=== PATIENT | male | born 1950 | race Caucasian/White ===

== ENCOUNTER 2017-06-13 18:53 | Emergency (ER) | payer BC, MEDICARE ==
[2017-06-13] MEDS ORDERED: Ketorolac 60 MG/2 ML SDV IM ONE (19:21)
--- NOTE | 2017-06-13 19:28 | EDM.PDOC ---
ED HPI GENERAL MEDICAL PROBLEM - General Chief Complaint: General Stated Complaint: right facial swelling Time Seen by Provider: 06/13/17 19:11 Source of Information: Reports: Patient History Limitations: Reports: No Limitations - History of Present Illness INITIAL COMMENTS - FREE TEXT/NARRATIVE: Has history of parotiditis in the past and has prednisone and clindamycin on hand and started it last . He state that there was no swelling at that time and yesterday it did start to swell some. He felt that the swelling may have become worse this afternoon. He has not had a fever or chills and states that it gets bigger when he is talking or swallowing more. Notes that it is smaller since the trip to [place] since he didn't talk all the way here. Onset: Gradual Duration: Week(s): Location: Reports: Face Quality: Reports: Dull - Related Data Allergies Allergy/AdvReac Type Severity Reaction Status Date / Time No Known Allergies Allergy Verified 06/13/17 18:57 Home Meds: Home Meds Aspirin [Halfprin] 81 mg PO DAILY 06/13/17 [History] Calcium Carbonate [Calcium] 600 mg PO DAILY 06/13/17 [History] Clindamycin HCl [Clindamycin HCl] 300 mg PO QID PRN 06/13/17 [History] Fish Oil/[place]-3 Fatty Acids [Fish Oil] 2 each PO DAILY 06/13/17 [History] Lisinopril/Hydrochlorothiazide [Lisinopril-Hctz 10-12.5 mg Tab] 1 each PO DAILY 06/13/17 [History] Loratadine [Claritin] 10 mg PO DAILY 06/13/17 [History] Rutin/Hesp/Bioflav/C/Herb#196 [Bioflex] 2 each PO DAILY 06/13/17 [History] Simvastatin [Zocor] 20 mg PO BEDTIME 06/13/17 [History] amLODIPine [Norvasc] 5 mg PO DAILY 06/13/17 [History] predniSONE [predniSONE] 40 mg PO DAILY 06/13/17 [History] Past Medical History HEENT History: Reports: Allergic Rhinitis Cardiovascular History: Reports: High Cholesterol, Hypertension - Past Surgical History HEENT Surgical History: Reports: Oral Surgery GI Surgical History: Reports: Colonoscopy Social & Family History - Tobacco Use Smoking Status *Q: Current Every Day Smoker Years of Tobacco use: 40 Packs/Tins Daily: 1.5 - Alcohol Use Days Per Week of Alcohol Use: 1 Number of Drinks Per Day: 4 Total Drinks Per Week: 4 - Recreational Drug Use Recreational Drug Use: No ED ROS GENERAL - Review of Systems Review Of Systems: See Below Constitutional: Denies: Fever, Chills HEENT: Reports: Other (see HPI). Denies: Throat Pain, Throat Swelling Respiratory: Reports: No Symptoms Cardiovascular: Reports: No Symptoms GI/Abdominal: Reports: No Symptoms Skin: Reports: No Symptoms ED EXAM, GENERAL - Physical Exam Exam: See Below Exam Limited By: No Limitations General Appearance: Alert, Mild Distress Ears: Normal External Exam, Normal Canal, Normal TMs Nose: Normal Inspection Throat/Mouth: Normal Inspection, Normal Oropharynx, Normal Voice Head: Atraumatic, Normocephalic, Facial Tenderness (mild swelling noted to the parotid gland and mild lymph node enlargement noted that is mildly tender. No red or warm to touch.) Neck: Normal Inspection, Supple, Full Range of Motion Respiratory/Chest: No Respiratory Distress, Lungs Clear, Normal Breath Sounds Cardiovascular: Normal Peripheral Pulses, Regular Rate, Rhythm Course - Vital Signs Last Recorded V/S: Last Vital Signs Temp 98.1 F 06/13/17 18:54 Pulse 93 06/13/17 18:54 Resp 16 06/13/17 18:54 BP 152/90 H 06/13/17 18:54 Pulse Ox 96 06/13/17 18:54 - Orders/Labs/Meds Meds: Medications Discontinued Medications Generic Name Dose Route Start Last Admin Trade Name Freq PRN Reason Stop Dose Admin Ketorolac Tromethamine 60 mg 06/13/17 19:21 06/13/17 19:27 Toradol IM 06/13/17 19:22 60 mg ONETIME ONE Administration Departure - Departure Time of Disposition: 19:28 Disposition: Home, Self-Care 01 Condition: Good (parotid) Clinical Impression: Parotid gland enlargement - Discharge Information Forms: ED Department Discharge Additional Instructions: Celebrex 200 mg daily for the facial swelling start in the morning Warm packs to the face as needed recheck if not improving Massage area to help with the swelling. - Problem List & Annotations (1) Parotid gland enlargement SNOMED Code(s): 31010118 Code(s): K11.1 - HYPERTROPHY OF SALIVARY GLAND Status: Acute Priority: High - Problem List Review Problem List Initiated/Reviewed/Updated: Yes
== END 2017-06-13 19:35 | disposition home or self-care (01) ==
LOC: CC.ED 18:53
DX: K11.1 Hypertrophy of salivary gland (principal); I10 Essential (primary) hypertension; E78.00 Pure hypercholesterolemia, unspecified; F17.210 Nicotine dependence, cigarettes, uncomplicated; Z88.8 Allergy status to other drugs, medicaments and biological substances; Z79.82 Long term (current) use of aspirin; Z79.899 Other long term (current) drug therapy
CPT/HCPCS: 96372; 99282; J1885

== ENCOUNTER 2021-03-19 14:41 | Emergency (ER) | payer OTHER, MEDICARE, BC ==
[2021-03-19] MEDS ORDERED: Ketorolac 60 MG/2 ML SDV IM ONE (14:57)
[2021-03-19] MEDS ORDERED: cloNIDine 0.1 MG Tab PO SCH (15:00)
--- NOTE | 2021-03-19 15:11 | EDM.PDOC ---
ED HPI GENERAL MEDICAL PROBLEM - General Chief Complaint: Upper Extremity Injury/Pain Stated Complaint: L shoulder pain Time Seen by Provider: 03/19/21 14:55 Source of Information: Reports: Patient History Limitations: Reports: No Limitations - History of Present Illness INITIAL COMMENTS - FREE TEXT/NARRATIVE: Amilcar is a 70 year old male who presents to ER with complaints of left shoulder pain. Was doing a lot of lifting and working to move stuff around on Saturday and started to note more stiffness last evening. This am, has pain with any movement of his left arm. Did take ibuprofen and a pain pill and that did help this am but now it is hurting a great deal again. No specific injury or fall. No chest pain or shortness of breath. is very tender to palpation to left anterior shoulder and muscle area of left upper arm when he pushes on it. No nausea or vomiting. No diaphoresis. Did note his blood pressure was elevated at home this am, did take his usual meds. Admits to being "nervous due to pain". 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 Arm Pain Score (Numeric/FACES): 9 - Related Data Allergies Allergy/AdvReac Type Severity Reaction Status Date / Time No Known Allergies Allergy Verified 03/19/21 14:42 Home Meds: Home Meds Lisinopril/Hydrochlorothiazide [Zestoretic 10-12.5 MG] 30 mg PO DAILY 09/02/13 [History] Simvastatin [Zocor] 80 mg PO BEDTIME 09/02/13 [History] Aspirin [Halfprin] 81 mg PO DAILY 06/13/17 [History] Calcium Carbonate [Calcium] 600 mg PO DAILY 06/13/17 [History] Chlorthalidone 25 mg PO DAILY 03/19/21 [History] Meloxicam 15 mg PO DAILY #14 tablet 03/19/21 [Rx] Multivitamin/Iron/Folic Acid [Tab-A-Taiwo Multivit with Iron] 1 tab PO DAILY 0 03/19/21 [History] Past Medical History HEENT History: Reports: Allergic Rhinitis Cardiovascular History: Reports: High Cholesterol, Hypertension - Past Surgical History HEENT Surgical History: Reports: Oral Surgery GI Surgical History: Reports: Colonoscopy Social & Family History - Tobacco Use Tobacco Use Status *Q: Current Every Day Tobacco User Review of Systems - Review of Systems Review Of Systems: See Below Constitutional: Denies: Chills, Diaphoresis, Fever Eyes: Reports: No Symptoms Ears: Denies: Dizziness, Pain Nose: Denies: Congestion Mouth/Throat: Denies: Pain Respiratory: Denies: Shortness of Breath, Cough Cardiovascular: Denies: Chest Pain GI/Abdominal: Denies: Abdominal Pain, Nausea, Vomiting Genitourinary: Reports: No Symptoms Musculoskeletal: Reports: Shoulder Pain, Arm Pain, Muscle Pain, Muscle Stiffness Skin: Reports: No Symptoms Neurological: Reports: No Symptoms ED EXAM, GENERAL - Physical Exam Exam: See Below Exam Limited By: No Limitations General Appearance: Alert, WD/WN, No Apparent Distress Ears: Normal External Exam, Normal TMs Nose: Normal Inspection, Normal Mucosa, No Blood Throat/Mouth: Normal Inspection, Normal Oropharynx Head: Normocephalic Neck: Normal Inspection, Supple, Non-Tender Respiratory/Chest: No Respiratory Distress, Lungs Clear, Normal Breath Sounds Cardiovascular: Regular Rate, Rhythm Extremities: Normal Inspection, Limited Range of Motion (has pain with palpation to clavicular line, anterior and lateral shoulder. Limited abduction and external rotation due to pain. No obvious abnormality) Neurological: Alert, Oriented Skin Exam: Warm, Dry Course - Vital Signs Last Recorded V/S: Last Vital Signs Temp 98.9 F 03/19/21 14:50 Pulse 95 03/19/21 14:50 Resp 18 03/19/21 14:50 BP 190/96 H 03/19/21 15:03 Pulse Ox 98 03/19/21 14:50 - Orders/Labs/Meds Orders: Active Orders 24 hr Category Date Time Status cloNIDine [Catapres] Med 03/19/21 15:00 Active 0.1 mg PO DAILY Medication Orders Clonidine HCl (Clonidine 0.1 Mg Tab) 0.1 mg PO DAILY [facility] Last Admin: 03/19/21 15:03 Dose: 0.1 mg Documented by: RICHARD Meds: Medications Generic Name Dose Route Start Last Admin Trade Name Juni PRN Reason Stop Dose Admin Clonidine HCl 0.1 mg 03/19/21 15:00 03/19/21 15:03 Clonidine 0.1 Mg Tab PO 0.1 mg DAILY ALLY Administration Discontinued Medications Generic Name Dose Route Start Last Admin Trade Name Juni BOWLES Reason Stop Dose Admin Ketorolac Tromethamine 60 mg 03/19/21 14:57 03/19/21 15:04 Ketorolac 60 Mg/2 Ml Sdv IM 03/19/21 14:58 60 mg ONETIME ONE Administration - Re-Assessments/Exams Free Text/Narrative Re-Assessment/Exam: 03/19/21 15:00-Blood pressure high in ER. Clonidine given. toradol given for shoulder pain. 03/19/21 15:52 Is feeling somewhat better in regards to arm pain. blood pressure is improving. Will need to follow up with his primary care provider for recheck blood pressure. If pain persists in shoulder, may need PT or MRI. Patient aware. Departure - Departure Time of Disposition: 15:54 Disposition: Home, Self-Care 01 Clinical Impression: Shoulder pain, left, Hypertensive urgency - Discharge Information *PRESCRIPTION DRUG MONITORING PROGRAM REVIEWED*: No *COPY OF PRESCRIPTION DRUG MONITORING REPORT IN PATIENT ESTRELLA: No Instructions: Shoulder Pain, Hypertension, Adult, [id number] Forms: ED Department Discharge Additional Instructions: 1. Rest 2. Avoid further strain to left shoulder 3. Meloxicam 15 mg daily for the next week 4. May consider seeing provider for steroid injection to shoulder or if pain persists, consider MRI and physical therapy 5. Follow up this week with your provider for recheck of blood pressure as may need medication adjustments. 6. Call with any questions or concerns. Sepsis Event Note (ED) - Evaluation Sepsis Screening Result: No Definite Risk - Focused Exam Vital Signs: Vital Signs Temp Pulse Resp BP BP Pulse Ox 03/19/21 15:03 190/96 H 03/19/21 14:50 98.9 F 95 18 197/103 H 98 - My Orders Last 24 Hours: My Active Orders 03/19/21 15:00 cloNIDine [Catapres] 0.1 mg PO DAILY - Assessment/Plan Last 24 Hours: My Active Orders 03/19/21 15:00 cloNIDine [Catapres] 0.1 mg PO DAILY
[2021-03-19] MEDS ORDERED: Take Home: Acetaminophen/HYDROcodone 325-5 MG, 2 Tab Pack ONE (15:46)
[2021-03-19] MEDS ORDERED: Meloxicam 7.5 MG Tab PO SCH (16:00)
[2021-03-19] MEDS ORDERED: Take Home: Acetaminophen/HYDROcodone 325-5 MG, 2 Tab Pack PO ONE (16:07)
== END 2021-03-19 16:10 | disposition home or self-care (01) ==
LOC: CC.ED 14:41
DX: M25.512 Pain in left shoulder (principal); I16.0 Hypertensive urgency; F17.200 Nicotine dependence, unspecified, uncomplicated; Z79.899 Other long term (current) drug therapy
CPT/HCPCS: 96372; 99283; 99284; A9270-GY; J1885